=== PATIENT | female | born 1990 | race Caucasian/White ===

== ENCOUNTER 2019-09-17 18:03 | Emergency (ER) | payer SELFPAY ==
[~2019-09-17] VITALS: Ht 157.5 cm; Wt 115.7 kg
[2019-09-17 18:03] VITALS: BP_SYST 142
[2019-09-17 19:21] VITALS: BP_SYST 138
== END 2019-09-17 19:21 ==
LOC: SED 18:03
DX: Z02.89 Encounter for other administrative examinations (principal); R03.0 Elevated blood-pressure reading, without diagnosis of hypertension
CPT/HCPCS: 99283